=== PATIENT | male | born 2000 | race African-American/Black ===

== ENCOUNTER 2021-05-06 21:41 | Emergency (ER) | payer OTHER | END 2021-05-07 04:45 | disposition home or self-care (01) | LOC: FER 21:41 | DX: S99.912A Unspecified injury of left ankle, initial encounter (principal); X50.1XXA Overexertion from prolonged static or awkward postures, initial encounter; Y93.67 Activity, basketball; Y92.830 Public park as the place of occurrence of the external cause | CPT/HCPCS: 73610 ==